=== PATIENT | female | born 1955 | race Caucasian/White ===

== ENCOUNTER 2024-11-05 09:09 | Outpatient (AMB) | payer MEDICARE, SELFPAY ==
--- NOTE | 2024-11-05 09:14 | MHC.OFFVIS ---
Vital Signs 11/05/24 09:18 Height 5 ft Weight 120 lb BMI 23.4 BP 116/78 Blood Pressure Location Rt brachial Position Sitting Intake Visit Reasons: ENP: Tremors Intake Note: Patient presents for tremors Allergies No Known Allergies Allergy (Verified 11/05/24 09:18) Medication List - Last Reconciled 11/05/24 by Sulma Holcomb MD alprazolam mg PO citalopram 20 mg PO DAILY omeprazole 40 mg PO DAILY primidone 50 mg PO DAILY vitamins A,C,B-dlss-eqyurs 4,296 mcg-226 mg-90 mg (PreserVision AREDS) 1 cap PO BID HPI Comments Details: 69y/o Right handed female comes for evaluation of tremors. She noticed tremors in her hands for about 10 years and has increased in severity now. 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 The tremors are with action and when she does activities that need fine motor coordination.No rest tremors she has family h/o tremors in her mother in her 70s. No voice tremors. Handwriting- moderately affected Using utensils- moderate difficulty drinking soup Drinking liquids out of a cup- holds with 2 hands Dressing- can dress without difficulty No leg tremors she does not restrict her social activities because of tremors PFSH Medical History Benign essential tremor Esophageal stenosis Osteoporosis Anxiety Surgical History H/O shoulder surgery H/O: hysterectomy Hx of colonoscopy Family History Mother COPD (chronic obstructive pulmonary disease) Father Malignant neoplasm Social History Alcohol intake: current Patient Tobacco Use Status: Never used Tobacco Review of Systems ENT Reports Normal hearing present Neuro Reports Normal hearing present Physical Exam Vital Signs: Last Vital Signs BP 116/78 11/05/24 09:18 BMI result Body Mass Index 23.4 Const General: cooperative, healthy appearing, comfortable and no acute distress Nutritional Appearance: average body habitus Orientation/consciousness: patient oriented x3 Eyes Pupils: Equal, round and reactive pupils present Neuro Other: Head tremors - mild no no Tongue mild tremors Mild voice tremors Hands - mild postural L>R tremors , mild to moderate action tremors see handwriting sample, archimedes spiral General: patient oriented x3, gait normal, tone normal, moves all extremities and no focal motor deficits Cranial nerves: Yes Facial sensation intact/muscles of mastication intact, Yes Equal, round and reactive pupils present, Yes Bilaterally intact EOM present, Yes Nystagmus not present, Yes Normal facial strength present, Yes Midline tongue present, Yes Symmetric palate elevation present, Yes Normal hearing present and Yes Ability to bilaterally elevate shoulders present Cognition (Neuro): normal cognition Gait exam (Neuro): Normal gait present Motor exam (neuro): 5/5 motor strength present throughout and Normal motor muscle tone present throughout Deep tendon reflexes (DTR's): Right triceps reflex intensity grade: 1+, Left triceps reflex intensity grade: 1+, Rt Biceps (C5, C6): 1+, Left biceps reflex intensity grade: 1+, Right brachioradialis reflex intensity grade: 1+, Left brachioradialis reflex intensity grade: 1+, Right patellar reflex intensity grade: 1+ and Left patellar reflex intensity grade: 1+ Coordination: [id number] test normal Assessment & Plan Assessment & Plan (1) Benign essential tremor: Code(s): G25.0 - Essential tremor Category: Medical Plan I will evaluate her with MRI Taper primidone to 25 mg qhs for 1 week and stop Trial patient on propranolol 10 mg tid as need discussed about the diagnosis and various management options including caltrio, FUS, andt DBS Orders: Orders MR head/brain wo con Today G25.0 - Essential tremor Medications: New propranolol 10 mg PO TID PRN 90 tabs 0RF tremors Coding Level of Care Code New Pt Level 4 (08573) Diagnoses Benign essential tremor G25.0
[2024-11-05 09:18] VITALS: BP 116/78; BMI 23.4
--- OUTSIDE RECORDS SUMMARY | 2024-11-05 09:36 | XMS_ITS | Continuity of Care Document ---
Author Organization [facility] ter Address [address] [place] [id number]- Support Name Relationship Address Phone CIRA [employer]WS Personal Relationship Unknown Alison vailable BORSARI, CIRA Personal Relationship Unknown Alison vailable BORSARI, CIRA Personal Relationship Unknown Alison vailable BORSARI, CIRA Personal Relationship Unknown Alison vailable BORSARI, CIRA Personal Relationship Unknown Alison vailable BORSARI, CIRA Personal Relationship Unknown Alison vailable BORSARI, CIRA Personal Relationship Unknown Alison vailable BORSARI, CIRA spouse Unknown Unavailable BORSARI, CIRA Personal Relationship Unknown Alison vailable BORSARI, CIRA Personal Relationship Unknown Alison vailable BORSARI, CIRA Personal Relationship Unknown Alison vailable BORSARI, CIRA Personal Relationship Unknown Alison vailable BORSARI, CIRA Personal Relationship Unknown Alison vailable BORSARI, CIRA Personal Relationship Unknown Alison vailable BORSARI, CIRA Personal Relationship Unknown Alison vailable BORSARI, CIRA Personal Relationship Unknown Alison vailable BORSARI, CIRA Personal Relationship Unknown Alison vailable BORSARI, CIRA Personal Relationship Unknown Alison vailable BORSARI, CIRA Personal Relationship Unknown Alison vailable BORSARI, CIRA Personal Relationship Unknown Alison vailable BORSARI, CIRA Personal Relationship Unknown Alison vailable BORSARI, CIRA Personal Relationship Unknown Alison vailable Care Team Providers Care Comic Book Writer Name Role Phone Aleshia Johnson MD Primary Care Physician Encounter 10/19/24 - 10/20/[address] [address]- Attending Physician: Not on Staff, Attending MD Referring Physician: Not on Staff, Referring MD Encounter Type: SMRI Allergies, Adverse Reactions, Alerts No Known Allergies Immunizations Given and Recorded Vaccine Date Status Refusal Reason Influenza Virus Vaccine (oldterm) 07/27/17 Recorde d Medications ALPRAZolam 0.5 mg oral tablet 0.5 mg, 1, tablet, By Mouth, Daily, PRN, # 30 tablet, Refills 0, Tot. Refills 0, Maintenance, for anxiety, 09/26/19 10:01:00 AM EST, Route to Pharmacy Electronically, [id number], 153, cm, 08/13/19 10:33:00 EST, Height Start Date: 09/26/19 Status: Ordered Quantity: 30.0 Unit: tablet Repeat number: 1 Calcitrate with D 1 tablet, By Mouth, Daily, 0 Refills, Maintenance, 03/08/16 3:13:25 PM EDT Start Date: 03/08/16 Status: Ordered Repeat number: 1 citalopram 20 mg oral tablet 20 mg, 1, tablet, By Mouth, Daily, # 90 tablet, Refills 0, Tot. Refills 0, Soft Stop, 10/17/19 10:20:00 AM EST, Route to Pharmacy Electronically, [id number], 153, cm, 08/13/19 10:33:00 EST, Height Start Date: 10/17/19 Status: Ordered Quantity: 90.0 Unit: tablet Repeat number: 1 Ocuvite 1 tablet, By Mouth, Daily, 0 Refills, Maintenance, 03/25/14 11:07:27 PM EDT Start Date: 03/25/14 Status: Ordered Repeat number: 1 Omeprazole = 20 mg, By Mouth, Daily, 0 Refills, Maintenance, 06/03/17 12:43:41 PM EDT Start Date: 06/03/17 Status: Ordered Repeat number: 1 Problem List Condition Confirmation Course Effective Dates Status H ealth Status Informant Actinic keratosis Confirmed Active Anxiety Confirmed Active Spinal compression fracture Confirmed Active Macular degeneration Confirmed Active Depression Confirmed Active Pancreatic calcification Confirmed Active GERD (gastroesophageal reflux disease) Confirmed Active Hypertension Confirmed Active Abnormal liver enzymes Confirmed Active Osteoarthritis Confirmed Active Osteopenia Confirmed Active Thrombocytopenia Confirmed Active Social History Social History Type Response Smoking Status Former smoker, quit more than 30 days ago entered on: 07/23/19 Sex Sex Representation Female (finding) Patient Care team information Care Team Personnel Name: Aleshia Johnson MD Position: [facility] Outreach Member Role: PCP [address]: [address] [place] [address] [place] [address]- [place] [employer]: Name: Vivien Cordova RN Position: [facility] AMB Nurse Member Role: Primary Care Nurse Care Team Related Persons Name: CIRA BRTIO Insurance Providers Guarantor name: BINH [facility] Information #: 1 Payer: CARLIE Member Number: NA Policy Number: NA Group Number: NA
--- OUTSIDE RECORDS SUMMARY | 2024-11-05 09:36 | XMS_ITS | Clinical Summary ---
Author Organization [facility] it Address [address] [place] [address] Care Team Providers Care Documentation Supervisor Name Role Phone Unavailable Primary Care Provider Unavailabl e Medications Medication Sig Dispensed Refills Start Date End Date Status omeprazole (PriLOSEC) [address] capsuleIndications:GE RD (gastroesophageal reflux disease) Take 1 capsule (40 mg total) by mouth 1 (one) time each day. Do not crush or chew. 30 each 2 08/23/2024 11/21/2024 Active Encounters Date Type Department Care Team Description 08/23/2024 Telephone Gastroenterology - [address] [facility] [address] [place] [address] Holli Rhodes MA from Last 3 Months Social History Tobacco Use Types Packs/Day Years Used Date Smoking Tobacco: Never Assessed Sex and Gender Information Value Date Recorded Sex Assigned at Not on file Gender Identity Not on file Sexual Orientation Not on file Plan of Treatment Health Maintenance Due Date Last Done Comments Breast Cancer Screening 1955 DTaP,Tdap,and Td Vaccines (1 - Tdap) 1973 Zoster Vaccines (1 of 2) 01/04/2004 Pneumococcal Vaccine: 65+ Ye ars (1 of 1 - PCV) 2019 Colorectal Cancer Screening: Colonoscopy 11/07/2023 Depression Screening 11/07/2023 Falls Risk Assessment 11/07/2023 Hepatitis C Screening 11/07/2023 Osteoporosis Screening (Bone Density Screening) 11/07/2023 Social Influencers of Health Screening 11/07/2023 COVID-19 Vaccine (1 - 2023-2 5 season) 2024 Influenza Vaccine (#1) 2024 RSV Immunization Patients 60 + Years Old (1 - 1-dose 75+ series) 2029 HIB Vaccines Aged Out No longer eligi ble based on patient's age to complete this topic HPV Vaccines Aged Out No longer eligi ble based on patient's age to complete this topic Hepatitis A Vaccines Aged Out No long er eligible based on patient's age to complete this topic Hepatitis B Vaccines Aged Out No long er eligible based on patient's age to complete this topic IPV Vaccines Aged Out No longer eligi ble based on patient's age to complete this topic MMR Vaccines Aged Out No longer eligi ble based on patient's age to complete this topic Meningococcal ACWY Vaccine Aged Out N o longer eligible based on patient's age to complete this topic RSV Immunization Patients Un katie 20 months Aged Out No longer eligible b ased on patient's age to complete this topic Varicella Vaccines Aged Out No longer eligible based on patient's age to complete this topic
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
== END 2024-11-05 10:12 | disposition home or self-care (01) ==
PROVIDERS: PCP Internal Medicine; Visit Provider Psychiatry & Neurology Neurology
DX: G25.0 Essential tremor (principal)
CPT/HCPCS: 99204

== ENCOUNTER → 2024-11-05 09:09 | Outpatient (BNVA) | payer MEDICARE, SELFPAY | PROVIDERS: PCP Internal Medicine; Visit Provider Psychiatry & Neurology Neurology | DX: G25.0 Essential tremor (principal) | CPT/HCPCS: 99202 ==

== ENCOUNTER → 2024-12-02 09:53 | Outpatient (BNV) | payer MEDICARE, SELFPAY | PROVIDERS: PCP Internal Medicine; Visit Provider Radiology Diagnostic Radiology | DX: G25.0 Essential tremor (principal) | CPT/HCPCS: 70551 ==

== ENCOUNTER 2024-12-02 10:07 | Outpatient (REF) | payer MEDICARE, SELFPAY ==
--- NOTE | ~2024-12-02 | MR_ITS ---
EXAMINATION: MR BRAIN WITHOUT IV CONTRAST HISTORY: G25.0 - Essential tremor TECHNIQUE: Sagittal T1, and axial T1, FLAIR, T2, gradient echo, and diffusion weighted MR images of the brain were obtained. COMPARISON: None FINDINGS: There is diffuse prominence of the ventricular system and cortical sulci, consistent with atrophy. Periventricular white matter hyperintensities are noted on the FLAIR and T2-weighted images which are nonspecific, but often seen in the setting of small vessel ischemic disease. There is no mass effect or midline shift. No intra or extra-axial fluid collections are identified. There are no foci of restricted diffusion. Normal vascular flow voids are noted in the basilar and carotid arteries. There is mucosal thickening in the bilateral maxillary sinuses. MR/MR head/brain wo con IMPRESSION: No acute intracranial abnormality. Electronically signed by: Elvin Limon MD 12/03/2024 07:13 AM PAN[facility]
--- OUTSIDE RECORDS SUMMARY | 2024-12-02 11:20 | XMS_ITS | Clinical Summary ---
Author Organization 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 Do not crush or chew. 90 each 5 02/20/20 25 Active omeprazole (PriLOSEC) [address] capsuleIndicat ions:GERD (gastroesophag eal reflux disease) Take 1 capsule (40 mg total) by mouth 1 (one) time each day. Do not crush or chew. 30 each 2 4 11/21/19 25 Discontinued Social History Tobacco Use Types Packs/Day Years Used Date Smoking Tobacco: Never Assessed Comments Unknown Sex and Gender Information Value Date Recorded Sex Assigned at Not on file Legal Sex Female 11:42 AM EST Gender Identity Not on file Sexual Orientation Not on file Plan of Treatment Health Maintenance Due Date Last Done Comments Breast Cancer Screening 1955 DTaP,Tdap,and Td Vaccines (1 - Tdap) 1973 Pneumococcal Vaccine: 50+ Ye ars (1 of 1 - PCV) 01/04/2004 Zoster Vaccines (1 of 2) 01/04/2004 Colorectal Cancer Screening: Colonoscopy 11/07/2023 Depression Screening 11/07/2023 Falls Risk Assessment 11/07/2023 Hepatitis C Screening 11/07/2023 Osteoporosis Screening (Bone Density Screening) 11/07/2023 Social Influencers of Health Screening 11/07/2023 COVID-19 Vaccine ( - 2023-2 5 season) 2024 Influenza Vaccine [...] patient's age to complete this topic Meningococcal B Vacine Aged Out No lo nger eligible based on patient's age to complete this topic RSV Immunization Patients Un katie 20 months Aged Out No longer eligible b ased on patient's age to complete this topic Varicella Vaccines Aged Out No longer eligible based on patient's age to complete this topic
--- OUTSIDE RECORDS SUMMARY | 2024-12-02 11:21 | XMS_ITS | Continuity of Care Document ---
Author Organization [place] - [facility], [address] Address [address] [place] [address] Care Team Providers Care Printer Operator Name Role Phone BRANDON MADRIGAL Primary Care Provider Assessment No assessment recorded. Plan of Treatment Reminders Order Date Submit Date Provider Last Modified By Organization Details Last Modified Time Details Appointments NEW PATIENT 10 2024 01:20P M Julio Cesar Pollock MD Not available Not available Not available Lab None recorded . Referral None recorded . Procedures None recorded . Surgeries None recorded . Imaging None recorded . Medication Orders None recorded . Patient TargetsNo targets recorded. Patient InstructionsNo instructions recorded. Reason for Referral None Reported. Results Created Date Observation Date Name Description Value Unit Range Abnormal Flag Note LastModifiedBy Organization Detail LastModifiedTime 10/22/1910/19/2024 MRI, shosharri katie, w/o contr ast [facility] Access ion Number : [id number] Patililian marcus Name: Zay terrazas Majoseluislake machelle Medica l Record Number : [id number] Date of : 1954 Date of Exam: 2024 Referr ing Physic michelle: Natalie Barker [address] [facility] [address] [facility], [place] [facility] [address] Exam: MR Should er (C-) CPT 79328 - Left Room Descri ption: [facility]T Clinic al Histor y: Pain in the left should er, questi on rotato r cuff tear. 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 Techni que: MRI of the left should er was perfor med withou t intrav enous contra st. Compar susan: None. Findin gs: Rotato r cuff: There is supras pinatu s tendin opathy . The infras pinatu s, teres minor and subsca pulari s tendon s are intact . There is normal muscle bulk. Glenoi d labrum and biceps tendon : Diminu tive, irregu lar appear ance of the superi or labrum , sugges ting degene rative tear. The biceps tendon is in the groove . AC joint: Mild acromi oclavi cular degene rative change with bony prolif eratio n and subcho ndral marrow edema is seen. Modera te fluid is seen in the subacr omial/ subdel toid bursa with hetero geneit y of the signal anteri kenney and latera lly in the bursa, sugges ting bursit is. Articu lar cartil age and bone: There is irregu lar chondr al loss which in the glenoi d with areas of chondr al loss extend ing full-t hickne ss in the centra l and pasteurizing supervisor ior inferi or aspect . There is subcho ndral cyst in the pasteurizing supervisor ior inferi or glenoi d. Inferi or irregu lar articu lar cartil age thinni ng is seen over the wally l head with slight bony prolif eratio n of the inferi or wally l head neck juncti on. There is a small glenoh umeral joint effusi on with hetero geneou s signal in the axilla ry pouch and subsca pulari s recess , sugges ting synovi tis. Impres antony: 1. Supras pinatu s tendin opathy with no eviden ce of rotato r cuff tear. 2. Modera te fluid in the subacr omial/ subdel toid bursa with hetero geneit y of the signal sugges ting bursit is. 3. Mild to modera te glenoh umeral degene rative change with degene rative appear ing tear of the superi or labrum and small joint effusi on with synovi tis. 4. Mild acromi oclavi cular degene rative change . Electr onical ly Signed By: Tonya dobbs [facility] ([facility] [address], [place], [address], 10/23/2024 08:40:11 Result Notes None recorded. Problems Name Problem SNOMED Code Status Onset Date Resolution Date Notes Provider Name and Address Organization Details Recorded Time Pain of left shoulder joint 960298257638 72763 Active 2023 Natalie Bhatt PA-C [address], [place], [address] , [facility] 4 08:46:35 Osteoarth ritis of joint of left shoulder region 966645475373 108 Active 2024 Natalie Tovar PA-C [address], [place], [address] , [facility] 5 08:46:19 Subacromi al bursitis of left shoulder 815348066899 9106 Active 2024 Natalie Tovar PA-C [address], [place], [address] , [facility] 5 11:26:20 Trochante elza bursitis of right hip 414204466830 100 Active 2017 Problem Code: M70.61; Problem Code Type: ICD-10; Status: 'A'; Not Available [facility] 4 12:13:25 Problem Notes None recorded. Procedures Surgical History Date Name Laterality Status Provider Name and Address Organization Details Recorded Time 4 91006 Therapeutic Exercise (1:1) cancelled Vish Gonzales PT [address], [place], [address], [facility] 09/13/2024 11:49:28 4 68943: Hot or Cold Pack cancelled Vish Gonzales PT [address], [place], [address], [facility] 09/13/2024 11:49:28 4 38337: Manual therapy cancelled Vish Champaign, PT [address], [place], [address], [facility] 09/13/2024 11:49:28 4 28051 Therapeutic Exercise (1:1) completed Linda Damiensak, PUMP OILER [address], [place], [address], [facility] 09/09/2024 09:24:11 4 79620: Hot or Cold Pack completed Linda Damiensak, PUMP OILER [address], [place], [address], [facility] 09/09/2024 09:24:11 4 73580: Manual therapy completed Linda Nimcok, PUMP OILER [address], [place], [address], [facility] 09/09/2024 09:24:11 4 84550 Therapeutic Exercise (1:1) completed Linda Damiensak, PUMP OILER [address], [place], [address], [facility] 08/29/2024 08:37:46 4 20769: Hot or Cold Pack completed Linda Nimcok, PUMP OILER [address], [place], [address], [facility] 08/29/2024 08:37:46 4 47431: Manual therapy completed Linda Damiensak, PUMP OILER [address], [place], [address], [facility] 08/29/2024 08:37:46 4 92950 Therapeutic Exercise (1:1) completed Linda Damiensak, PUMP OILER [address], [place], [address], [facility] 08/26/2024 11:19:51 4 13976: Hot or Cold Pack completed Linda Damiensak, PUMP OILER [address], [place], [address], [facility] 08/26/2024 11:19:46 4 59075: Manual therapy completed Linda Moody, PUMP OILER [address], [place], [address], [facility] 08/26/2024 11:24:54 4 71878 Therapeutic Exercise (1:1) completed Vish Gonzales, PT [address], [place], [address], [facility] 08/20/2024 12:16:29 4 57208: Low complexity PT Eval completed Vish Gonzales, PT [address], [place], [address], [facility] 08/20/2024 12:16:35 4 Sports Shoulder completed Natalie Bhatt PA-C [address], [place], [address], [facility] 08/16/2024 12:19:27 Imaging Results None recorded. Procedure Notes None recorded. Medical Equipment None Reported. Allergies No known drug allergies Medications Name Sig Start Date Stop Date Status Note LastModified by Organization Details LastModified Time primidone 50 mg tablet active Not Available Not Available Not Available tizanidine 2 mg tablet active Not Available Not Available Not Available meloxicam 15 mg tablet Take 1 tablet every day by oral route after meal(s). active Not Available Not Available No t Available omeprazole 40 mg capsule,del ayed release active Not Available Not Available Not Available oxycodone-a cetaminophe n 5 mg-325 mg tablet TAKE 1 TABLET BY MOUTH EVERY 6 HOURS NEEDED active Not Available Not Available No t Available alprazolam 0.5 mg tablet active Not Available Not Available Not Available propranolol 10 mg tablet active Not Available Not Available Not Available citalopram 20 mg tablet active Not Available Not Available Not Available Lidoderm 5 % topical patch 2024 active Not Available Not Available Not Avai lable pseudoephed rine-guaife nesin ER 80-700 mg tablet,exte nded release 1-2 TABS PO Q 4-6HRS PRN PAINDO NOT DRIVE WHILE TAKING THIS MEDICATIO N 08/16 completed Statu s: 'Curr ent'; Not Available Not Available Not Available citalopram 08/16 completed Not Available Not Available Not Available omeprazole 08/16 completed Not Available Not Available Not Available PreserVisio n AREDS PreserVis ion AREDS Capsule 2021 active Statu s: 'Curr ent'; Not Available Not Available Not Available oxycodone HCl-oxycodo ne-ASA 1 every 4 - 6 hours as needed for severe painDO NOT DRIVE WHILE TAKING THIS MEDICATIO N 08/25 completed Statu s: 'Disc ontin ued'; Not Available Not Available Not Available GaviLyte-G 236 gram-22.74 gram-6.74 gram-5.86 gram oral solution 08/16 completed Not Available Not Available Not Available Vitals Date Recorded Body height Body mass index (BMI) Body weight Provider Name and Address Organization Details Last Updated DateTime 11/15/2024 152.4 cm 23.4 kg/m2 12814.08 g MIGUEL WEBBER [place] - [facility] 11/15/2024 09:32:18 Social History Question Answer Notes LastModified by Ovidio morejon Details LastModified Time Tobacco Smoking Status Former Smoker DINESH jefferson [place] - [facility] 08/16/2024 10:40:07 What Is Your Level Of Alcohol Consumption? Occasional Information not available 08/16/2024 How Many Times Per Week Do You Consume Alcohol? 3-4 Times Per Week Information not available 08/16/2024 Which Illicit Or Recreational Drugs Have You Used? MARIJUANA Information not available 08/16/2024 When Did You Quit Smoking? 16+yearssincel astcigarette Information not available 08/16/2024 Which Of Your Hands Is Dominant? Right Information not available 08/16/2024 Have You Ever Been Counseled For Unhealthy Alcohol Use? No Information not available 08/16/2024 Do You Use Any Illicit Or Recreational Drugs? Yes gerberinmejia Information not available 08/16/2024 Do You Or Have You Ever Used Any Other Forms Of Tobacco Or Nicotine? No demetriusguinmejia Information not available 08/16/2024 Sex: Unknown Functional Status None recorded. Mental Status None recorded. Family History Nothing Reported. Medical History Condition Response Breathing or lung disorders Y Arthritis Y Gynecological HistoryNo gynecological history recorded. Obstetrics History GPAL:G 0 P 0 0 0 0 Past Encounters Encounter ID Performer Location Encounter Start Date Encounter Closed Date Diagnosis/Indication Diagnosis SNOMED-CT Code Diagnosis ICD10 Code Diagnosis Note [id number] [facility] [address] [place] [address] [place] [address] 11/15/2024 08:59:50 11/15/2024 11:27:11 Osteoarthritis of joint of left shoulder region 2803241417 72984 M19.012 Subacromia l bursitis of left shoulder 9157080397 068764 M75.52 Health Concerns Section Related Observation LastModified by Organization Detai ls LastModified Time None Recorded Concern Status LastModified by Organization Details LastModified Time None Recorded Payers Encounter Date Sequence Insurance Name Policy Number Policy Crawford Covered Member ID Crawford Member ID Guarantor Name 11/15/2024 1 [place] (MEDICARE REPLACEMENT PPO) [id number] Whitney Verde [id number] Whitney Verde Notes Date Note Type Note Provider Name and Address Organization Details Recorded Time 5 text/html I am seeing the patient today under the supervision of {{Jeff Buchanan Brothdarwin Beard barbara [place]#}} who was available but did not see the patient. CLINICAL UPDATE: 69-year-old agycf-qxkt-ocawcijt female patient presents today for left shoulder recheck. Last cortisone injection 08/16/24 provided good relief for about 2 months, pain has returned. She attended physical therapy with good improvements in her ROM. She reports an episode where she picked up her granddaughter and had severe pain in the shoulder and crepitus. Her primary care provider provided her with Percocet which she reports relieved her pain. She called our office and MRI was ordered, here today to review the results. HPI: Presented 08/16/24 with left shoulder pain that began about 2 months ago, no specific injury. She does report neck pain that is new for her, denies numbness and tingling down the left upper extremity. She saw her primary care provider who ordered x-rays and provided her with a muscle relaxer that provided minimal relief. She had an MRI in 2020 of the left shoulder that demonstrated a partial-thickness bursal sided rotator cuff tear, moderate AC and glenohumeral joint osteoarthritis, moderate tendinosis. Denies previous shoulder surgery. Past family, medical, social history and review of systems has been reviewed, updated and is located in the patient's chart.X-RAYS: Previous 2v x-rays of the {{Right Left* Bilateral}} shoulder reviewed along with 2v in [facility] today demonstrates type II acromion, mild to moderate AC joint degenerative changes, humeral head appears centered within the joint space. MRI Lemon 06-22-2025 of the left shoulderindependently reviewed today demonstrates: Supraspinatus tendinopathy, no rotator cuff tear. Degenerative tearing of the labrum. Biceps appears intact. Mild AC joint degenerative changes with bony edema. Moderate subacromial subdeltoid bursitis. Mild to moderate glenohumeral joint degenerative changes with small joint effusion. IMPRESSION: {{Right Left* Bilateral}} shoulder rotator cuff tendinopathy, mild to moderate AC and glenohumeral joint osteoarthritis, bursitis PLAN: Findings reviewed. Discussed ongoing conservative treatment options to include physical therapy, cortisone injections, topical and oral anti-inflammatories. Patient reports she has tried several of these options and is continuing to have pain and crepitus. She would like to discuss the possibility of SADDCE with Dr. Pollock though we discussed this may not completely relieve her pain as she does have osteoarthritis, appointment made today. We discussed the typical procedure and recovery time. Her primary care provider provided her with a small prescription of Percocet, discussed I would not recommend this at this time. Meloxicam 15 mg to be taken daily with food was sent to her pharmacy. Instructed to avoid other NSAIDs while taking this medication and discontinue if GI upset. Also sent lidocaine patches for pain relief. Recommended ongoing gentle range of motion shoulder exercises. All of her concerns are addressed and she understands and agrees with the plan. Speech recognition associate brand manager software was used to create portions of this document. An attempt at proofreading has been made to minimize errors. Please call for corrections. Natalie Tovar PA-C [address] [facility] [address], [place], [address], [facility] 11/15/2024 11:27:09 OBGyn Episode No OBEpisode recorded.
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
== END 2024-12-02 10:08 | disposition home or self-care (01) ==
LOC: HO.MRI 10:07
PROVIDERS: PCP Internal Medicine; Visit Provider Psychiatry & Neurology Neurology
DX: G25.0 Essential tremor (principal)
CPT/HCPCS: 70551

== ENCOUNTER 2024-12-13 10:54 | Outpatient (AMB) | payer MEDICARE, SELFPAY ==
[2024-12-13 10:56] VITALS: BP 180/100; PULSE 64; O2SAT 96; BMI 23.6
--- NOTE | 2024-12-13 10:56 | MHC.OFFVIS ---
Vital Signs 12/13/24 10:56 Height 5 ft Weight 121 lb BMI 23.6 BP 180/100 H Blood Pressure Location Rt brachial Position Sitting Pulse 64 Pulse Source Pulse Oximeter Pulse Oximetry (%) 96 Oxygen Delivery Method Room Air Intake Visit Reasons: 1 mnth f/u appt Intake Note: Patient presents for 1 month follow up. Brain MRI on file and done on 12/02/24. Conservation Or Heritage [employer] Required: No Accompanied by: Self / Same As Patient Allergies No Known Allergies Allergy (Verified 12/13/24 10:57) HPI Comments Details: 69y/o Right handed female comes for evaluation of tremors. She has a family h/o tremors with mother. She noticed tremors in her hands for about 10 years and has increased in severity now. 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 The tremors are with action and when she does activities that need fine motor coordination. She goes to sleep at 9pm and wakes up at 7am, with one bathroom breaks. Her diet well balanced and she exercises 4x a week, walking 30min to 40min. Mood is generally happy. No rest tremors. No voice tremors. Handwriting- moderately affected Using utensils- moderate difficulty drinking soup Drinking liquids out of a cup- holds with 2 hands Dressing independent in all ADLs No LE Tremors Social activities are not impacted or limited Denies memory issues Denies falls Denies constipation BP was normal at [employer] 2 weeks ago, she has white coat [facility] Medical History Benign essential tremor Esophageal stenosis Osteoporosis Anxiety Surgical History H/O shoulder surgery H/O: hysterectomy Hx of colonoscopy Family History Mother COPD (chronic obstructive pulmonary disease) Father Malignant neoplasm Social History Alcohol intake: current Patient Tobacco Use Status: Never used Tobacco Review of Systems ENT Reports Normal hearing present Neuro Reports Normal hearing present Physical Exam Vital Signs: Last Vital Signs Pulse 64 12/13/24 10:56 BP 180/100 H 12/13/24 10:56 Pulse Ox 96 12/13/24 10:56 Oxygen Delivery Method Room Air 12/13/24 10:56 BMI result Body Mass Index 23.6 Const General: cooperative, comfortable and no acute distress Nutritional Appearance: average body habitus Orientation/consciousness: patient oriented x3 Eyes Pupils: Equal, round and reactive pupils present Neck Neck: Yes full ROM and Yes supple Neuro Other: Head tremors - mild Tongue mild tremors Mild voice tremors Hands - mild postural L>R tremors and mild to moderate action tremors Handwriting sample, archimedes spiral General: patient oriented x3, gait normal, tone normal, moves all extremities and no focal motor deficits Cranial nerves: Yes Facial sensation intact/muscles of mastication intact, Yes Equal, round and reactive pupils present, Yes Bilaterally intact EOM present, Yes Nystagmus not present, Yes Normal facial strength present, Yes Midline tongue present, Yes Symmetric palate elevation present, Yes Normal hearing present and Yes Ability to bilaterally elevate shoulders present Cognition (Neuro): normal cognition Gait exam (Neuro): Normal gait present Motor exam (neuro): 5/5 motor strength present throughout and Normal motor muscle tone present throughout Deep tendon reflexes (DTR's): Right triceps reflex intensity grade: 1+, Left triceps reflex intensity grade: 1+, Rt Biceps (C5, C6): 1+, Left biceps reflex intensity grade: 1+, Right brachioradialis reflex intensity grade: 1+, Left brachioradialis reflex intensity grade: 1+, Right patellar reflex intensity grade: 1+ and Left patellar reflex intensity grade: 1+ Coordination: [id number] test normal Results Reviewed Results Reviewed: Nov 2024 MRI FINDINGS: There is diffuse prominence of the ventricular system and cortical sulci, consistent with atrophy. Periventricular white matter hyperintensities are noted on the FLAIR and T2-weighted images which are nonspecific, but often seen in the setting of small vessel ischemic disease. There is no mass effect or midline shift. No intra or extra-axial fluid collections are identified. There are no foci of restricted diffusion. Normal vascular flow voids are noted in the basilar and carotid arteries. There is mucosal thickening in the bilateral maxillary sinuses. 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 Continue on propranolol 10 mg tid Discussed White Coat HTN and managing and monitoring BP at home. 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 200 mg (2 x 100 mg) PO BID 360 tabs 3RF 90 days MDD 200mg G25.0 - Essential tremor Refilled propranolol 10 mg PO TID PRN 90 tabs 0RF tremors Patient Instructions: Discussed MRI today Periventricular White matter disease and normal process of aging. Monitor BP and manage accordingly. Eating a well balanced diet, getting plenty of rest and eliminating stress will help to decrease tremors. F/U in 6 months or sooner as needed. 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
--- OUTSIDE RECORDS SUMMARY | 2024-12-13 12:30 | XMS_ITS | Data Portability ---
Author Organization [place] - [facility],, MEME CLINE MD Address [address] [facility] [address] [place] [address] Care Team Providers Care Wordpress Developer Name Role Phone BRANDON MADRIGAL Primary Care Provider Assessment No assessment recorded. Plan of Treatment Reminders Order Date Submit Date Provider Last Modified By Organization Details Last Modified Time Details Appointments None recorded . Lab cytology report, thin prep, smear or scraping , cervical or vaginal 2024 025 SARA [facility] (Centralized Electronic Ordering - All Locations), Patient Can Go To The Location Of Their Choice, [facility] 5 16:15:54 Referral pelvic floor therapy referral - dyspareu rico despite 2 years of vaginal estradio l therapy. Recent MRI only showed a 1 cm cyst in the right vaginal wall, no etiology found for the pain 2022 023 [email or web address] [facility], [address] [facility], [facility] [address], [place], [address], 4 07:40:59 Procedures therapeu tic, prophyla ctic, or diagnost ic injectio n; subcutan eous/int ramuscul ar (PROC) 2022 023 Not available 3 07:31:24 therapeu tic, prophyla ctic, or diagnost ic injectio n; subcutan eous/int ramuscul ar (PROC) 2022 023 Not available 3 13:54:13 Surgeries None recorded . Imaging MAMMO, screenin g, digital, bilatera l - Breast Aspirati on and/or Biopsy if needed 2024 025 [facility], [address], [address], [place], [address], 5 16:06:50 bone density 2024 025 [facility], [address], [address], [place], [address], 5 16:06:50 MRI, pelvis, w/wo contrast - pain of specific point on the left pelvic ramus, just inside the vaginal canal at the 4 o'clock, for 2 months, making intercou rse impossib le due to severe pain. No pain on palpatio n of any other bony structur e in the pelvic, juut this one specific point [email or web address] [address], [place], [address], 3 07:19:09 Medication Orders Prolia 60 mg/mL subcutan eous syringe 2022 023 [email or web address] 1 [id number], [address] [place] [address], [id number], 3 10:51:00 Prolia 60 mg/mL subcutan eous syringe 2022 023 [email or web address] 1 [id number], [address] [place], [place], [id number], 3 13:45:27 Patient TargetsNo targets recorded. Patient Instructions Encounter Date Encounter Id Patient Instructions Last Modified By Organization Details Last Modified Time 12/08/2022 [id number] She has a two month complaint of [...] seeding, somewhere. Not available 12/08/2022 13:31:34 03/13/2023 [id number] She is here for follow up after [...] discussion 30 minutes Not available 03/13/2023 13:05:20 12/03/2024 [id number] atrophic vaginitis: care instructions Not available 12/03/2024 14:55:35 learning about healthy weight Not available 12/03/2024 14:55:35 She is here for annual, she started Prolia in 11/2022. Has not had a bone density since then. She is using an over the counter oral pill she gets from [employer] that helps with vaginal dryness, she is not certain if it is a phytoestrogen or not. She has had a hysterectomy. Note from 2021: She is here for annual exam, has osteopenia, is on Evista, next bone density in 07/30. she needs a refill on her estradiol vaginal cream, it does help the vaginal dryness and urinary urge incontinence. ____ She appears to be doing well. Monthly self breast exam was taught, and stressed, and is advised to call if she discovers any new mass in the breast. She is advised that if she is taking a phytoestrogen she should switch to vaginal estradiol cream, which she used to use She prefers the oral pills. She is advised it is not FDA regulated and could increase risks of blood clots, she is aware. Not available 12/03/2024 15:06:53 Reason for Referral Pelvic Floor Therapy Referra l for Deep pain on intercourse dyspareunia despite 2 years of vaginal estradiol therapy. Recent MRI only showed a 1 cm cyst in the right vaginal wall, no etiology found for the pain Referring Physician: Meme Cline, Gynecology, Encounter Date: 03/13/2023 Results Created Date Observation Date Name Description Value Unit Range Abnormal Flag Note LastModifiedBy Organization Detail LastModifiedTime 12/03/19 25 12/05/2024 IGP, RFX APTIM A HPV ASCU diagnosis: Leny BERNARD FOR INTRA EPITH ELIAL VALDEMAR Polanco OR WILL CUTLER . Not Available [facility] ([facility]) [address] [place], [address], 12/05/2024 16:15:54 12/03/1912/05/2024 IGP, RFX APTIM A HPV ASCU specimen adequacy: Leny marcus Satis facto mikayla for evalu ation . Not Available [facility] ([facility]) [address] [place], [address], 12/05/2024 16:15:54 12/03/19 25 12/05/2024 IGP, RFX APTIM A HPV ASCU clinician provided ICD10: Leny marcus Z12.4 Not Available [facility] ([facility]) [address] [place], [address], 12/05/2024 16:15:54 12/03/19 25 12/05/2024 IGP, RFX APTIM A HPV ASCU performed by: Michaelle Brock (ASCP ) Not Available [facility] ([facility]) [address] [place], [address], 12/05/2024 16:15:54 12/03/19 25 12/05/2024 IGP, RFX APTIM A HPV ASCU . . Not Available [facility] ([facility]) [address] [place], [address], 12/05/2024 16:15:54 12/03/1912/05/2024 IGP, RFX APTIM A HPV ASCU note: Leny marcus The Pap smear is a scree miles test desig cora to aid in the detec tion of jami ligna nt and malig nant condi tions of the uteri ne cervi x. It is not a diagn ostic proce dure and shoul d not be used as the sole means of detec ting cervi sherice cance r. Both false -posi tive and false -nega tive repor ts do occur . Not Available [facility] ([facility]) [address] [place], [address], 12/05/2024 16:15:54 12/03/1912/05/2024 IGP, RFX APTIM A HPV ASCU test methodology: Leny marcus This liqui d based ThinP rep(R ) pap test was scree cora with the use of an image guide alfreda systlake m. Not Available [facility] ([facility]) [address] [place], [address], 12/05/2024 16:15:54 12/03/19 25 12/05/2024 IGP, RFX APTIM A HPV ASCU . Leny marcus The HPV DNA refle x crite mat were not met with this speci men resul t there fore, no HPV testi ng was perfo rmed. Not Available [facility] ([facility]) [address] [facility], [place], [address], 12/05/2024 16:15:54 11/01/19 23 11/01/2022 MAMMO , scree miles, digit al, bilat eral No observ ation record ed. [facility] [address] [facility] [place], [address], 11/01/2022 14:05:21 11/04/19 23 11/01/2022 bone densi ty No observ ation record ed. [email or web address] [facility] [place] [address] [facility] [place], [address], 11/07/2022 08:47:49 03/07/20 23 03/03/2023 MRI, pelvi s, w/o contr ast No observ ation record ed. [facility] ([facility]) [address] [facility] [place], [address], 03/08/2023 09:14:29 03/13/2007/07/2014 CT, abdom en + pelvi s, w/wo contr ast No observ ation record ed. Not Available 2022 11:05:13 11/02/19 24 11/02/2023 MAMMO , scree miels, digit al, bilat eral No observ ation record ed. [facility] [address] [facility] [place], [address], 11/02/2023 13:14:50 Result Notes None recorded. 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 Meme Cline MD [address] [facility], [address], [place], [address], [place] [facility], 8 10:00:55 History of abdominal abscess 792153811507 10261 Active 2017 abdominal wall abscess in [address], [place], [address], [place] [facility], 8 10:04:18 Atrophic vaginitis 76345424 Active [address], [place], [address], [place] [facility], 8 10:05:17 Herpesvir us infection 04508801 Active [address], [place], [address], [place] [facility], 8 15:28:43 Osteopeni a 767409256 Active 2017 MD [address], [place], [address], [place] [facility], 8 11:01:18 Lesion of vulva 201052216 Active 2019 [address], [place], [address], [place] [facility], 0 10:23:41 Dyspareun ia 31704243 Active [address], [place], [address], [place] [facility], 1 11:41:20 Osteoporo sis 82550257 Active [address], [place], [address], [place] [facility], 3 11:32:39 Problem Notes None recorded. Procedures Surgical History Date Name Laterality Status Provider Name and Address Organization Details Recorded Time 11/02/19 25 Most Recent Mammogram completed Aparna Mckoy [place] - [facility], 12/03/2024 14:47:36 11/01/19 23 Most Recent Bone Density completed Aparna Franz in [facility], 11/08/2022 13:15:33 03/21/20 19 division of clavicle completed Aparna Franz in [facility], 11/28/2019 09:30:15 10/09/19 07 Hysterectomy completed Meme Cline MD [address] [place] [address],[address], [place], [address], [place] - [facility], 12/05/2017 09:31:10 10/10/18 84 Dilation and Curettage completed Aparna Mckoy [place] - [facility], 12/05/2017 09:18:54 Imaging Results Imaging Date Name Status LastModified by Organiz ation Details LastModified Time 11/01/2022 MAMMO, screening, digital, bilateral completed [address] [facility] [place] [address] [place], [address], 11/01/2022 14:05:21 11/01/2022 [facility] [address] [place], [address], 11/07/2022 08:47:49 03/03/2023 MRI, pelvis, w/o contrast completed [facility] ([facility]) [address] [facility] [place], [address], 03/08/2023 09:14:29 07/07/2014 CT, abdomen + pelvis, w/wo contrast completed Information not available 03/13/2023 11:05:13 11/02/2023 MAMMO, screening, digital, bilateral completed [address] [facility] [place] [address] [place], [address], 11/02/2023 13:14:50 Procedure Notes None recorded. Medical Equipment None Reported. Allergies No known drug allergies Medications Name Sig Start Date Stop Date Status Note LastModified by Organization Details LastModified Time amoxicillin 500 mg capsule 03/01 completed Not Available Not Available Not Available primidone 50 mg tablet 12/03 completed Not Available Not Available Not Available tizanidine 2 mg tablet 12/03 completed Not Available Not Available Not Available meloxicam 15 mg tablet take 1 tablet by mouth once daily WITH SUPPER active Not Available Not Available No t Available alendronate 70 mg tablet TAKE 1 TABLET BY MOUTH EVERY WEEK 12/03 completed Not Available Not Available Not Available acyclovir 400 mg tablet take 1 [...] 0.5 g every day by vaginal route. 12/03 completed Not Available Not Available Not Available methylpredn isolone 4 mg tablets in [...] Available Not Available Not Available Vitamin D3 12/03 completed Not Available Not Available Not Available Calcium 500 + D 12/03 completed Not Available Not Available Not Available Prolia [...] t Available Vitals Date Recorded Body height Body mass index (BMI) Body weight Heart rate Systolic blood pressure Diastolic blood pressure Provider Name and Address Organization Details Last Updated DateTime 3 151.13 cm 24.2 kg/m2 35384.2 7 g 76 /min 144 mm[Hg] 72 mm[Hg] Suzanne Zaidi [place] - [facility], 3 13:07:11 Date Recorded Body height Body mass index (BMI) Body weight Heart rate Systolic blood pressure Diastolic blood pressure Provider Name and Address Organization Details Last Updated DateTime 3 151.13 cm 24.2 kg/m2 55297.2 7 g 89 /min 167 mm[Hg] 82 mm[Hg] Aparna Mckoy [place] - [facility], 3 10:37:40 Date Recorded Body height Body mass index (BMI) Body weight Heart rate Systolic blood pressure Diastolic blood pressure Provider Name and Address Organization Details Last Updated DateTime 3 151.13 cm 24.2 kg/m2 97772.2 7 g 94 /min 154 mm[Hg] 72 mm[Hg] Suzanne Franz in [facility], 3 10:43:34 Date Recorded Body height Body mass index (BMI) Body weight Heart rate Body temperature Systolic blood pressure Diastolic blood pressure Provider Name and Address Organization Details Last Updated DateTime 3 151.13 cm 24.2 kg/m2 22038.5 5 g 83 /min 97.3 [degF] 161 mm[Hg] 89 mm[Hg] Aparna Franz in [facility], 3 10:41:30 Date Recorded Body height Body mass index (BMI) Body weight Heart rate Systolic blood pressure Diastolic blood pressure Provider Name and Address Organization Details Last Updated DateTime 5 149.86 cm 24 kg/m2 27405.4 9 g 73 /min 148 mm[Hg] 64 mm[Hg] Aparna Franz in [facility], 5 14:43:21 Social History Question Answer Notes LastModified by Organization Details LastModified Time Tobacco Smoking Status Former Smoker Not Available [facility] 08/11/2020 03:19:37 What Is Your [...] Type Of Diet Are You Following? REGULAR [id number] Information not available 08/11/2020 Which Illicit Or Recreational Drugs Have You Used? No [id number] Information not available 08/11/2020 Do You Reside In Or Have You Traveled To An Area Where Ebola Virus Transmission Is Active? No [id number] Information not available 08/11/2020 Do You Or Have You Ever Used E-cigarettes Or Vape? Never Used Electronic Cigarettes [id number] Information not available 08/11/2020 Education 2 Year College Information not available 12/05/2017 What Is Your Occupation? Retired [id number] Information not available 08/11/2020 How Many Days In The Past Year Have You Had A Heavy Drinking Consumption (4+ Female, 5+ Male)? 10 Information not available 12/03/2024 Are There Any Guns Present In Your Home? Yes Information not available 12/06/2021 High Number Of Sexual Partners Yes Information not available 12/05/2017 To Which Gender Do You Self-identify? Female Information not available 12/05/2017 Marital Status Informatio n not available 12/05/2017 What Was The Date Of Your Most Recent Tobacco Screening? 12/03/2024 Information not available 12/03/2024 What Is Your Relationship Status? Information not available 12/06/2021 Are You Sexually Active? Yes Having Issues With [place] Information not available 03/01/2021 At What Age Did You Start Smoking Tobacco? 16 Information not available 12/06/2021 Do You Or Have You Ever Used Smokeless Tobacco? Never Used Smokeless Tobacco [id number] Information not available 08/11/2020 How Much Tobacco Do You Smoke? No [id number] Information not available 08/11/2020 General Stress Level Medium Information not available 12/03/2024 Do You Feel Stressed (tense, Restless, Nervous, Or Anxious, Or Unable To Sleep At Night)? [id number] Information not available 12/03/2024 Do You Use Any Illicit Or Recreational Drugs? No Information not available 12/06/2021 How Many Years Have You Smoked Tobacco? 20 [id number] Information not available 08/11/2020 Have You Recently [...] Time What is your exercise level? Moderate [id number] Information not available 08/11/2020 Mental Status None [...] for MyRisk panel N Autoimmune Condition N Thyroid Problems N Kidney or Bladder Problems N GI Problems N Lung Disease N Depression N Defects or Inherited Disease N History of Ovarian Cancer N Anemia N History of Breast Cancer N JACQUIE exposure N BRCA testing in past N Osteopenia Y Psychiatric Illness N Anxiety Disorder Y Diabetes N Arthritis Y Headaches or Migraines N Infertility N Asthma N History of Cancer N Endometriosis N Hepatitis N Heart Disease N Hypertension N Osteoporosis N Gynecological History Statement/Question Response If Post Menopausal, Age at Menopause 51 Age at Menarche 10 Most Recent Mammogram 11/02/2024 Age at First Child 31 Most Recent Bone Density 11/01/2022 Hormone Replacement Therapy N Obstetrics History GPAL:G 3 P 1 0 2 1 Type Value Full Term 1 Spontaneous 2 Living 1 Total 3 Immunizations Vaccine Type Date Status Note Provider Nam e and Address Organization Details Recorded Time Influenza, split virus, quadrivalent, preservative 7 completed Aparna Meczywor null, [place] - [facility], 12/05/2017 09:12:48 Influenza, split virus, quadrivalent, preservative 8 completed Tequila Medina null, [place] - [facility], 11/23/2018 10:05:53 DTaP 9 completed Aparna Meczywor null, [place] - [facility], 11/28/2019 09:28:21 SARS-COV-2 (COVID-19) vaccine, UNSPECIFIED 1 completed Suzanne Zaidi null, [place] - [facility], 03/01/2021 13:49:14 Influenza, adjuvanted, trivalent, PF 9 completed Aparna Meczywor null, [place] - [facility], 12/08/2022 10:38:02 zoster recombinant 1 completed Aparna Meczywor null, [place] - [facility], 12/08/2022 10:38:02 Influenza, high-dose, quadrivalent, PF 0 completed Aparna Meczywor null, [place] - [facility], 12/08/2022 10:38:02 Influenza, adjuvanted, quadrivalent, PF 1 completed Aparna Meczywor null, [place] - [facility], 12/08/2022 10:38:02 Influenza, adjuvanted, quadrivalent, PF 2 completed Aparna Meczywor null, [place] [facility], 12/08/2022 10:38:02 COVID-19, mRNA, LNP-S, PF, 30 mcg/0.3 mL dose 2 completed Aparna Meczywor null, [place] - [facility], 12/08/2022 10:38:02 COVID-19, mRNA, LNP-S, PF, 30 mcg/0.3 mL dose 1 completed Aparna Meczywor null, [place] [facility], 12/08/2022 10:38:02 COVID-19, mRNA, LNP-S, PF, 30 mcg/0.3 mL dose 1 completed Aparna Meczywor null, [place] - [facility], 12/08/2022 10:38:02 COVID-19, mRNA, LNP-S, PF, 30 mcg/0.3 mL dose, jeovany-sucrose 2 completed Aparna Meczywor null, [place] - [facility], 12/08/2022 10:38:02 Tdap 9 completed Aparna Meczywor null, [place] - [facility], 12/08/2022 10:38:02 Influenza, split virus, trivalent, preservative 3 completed Aparna Meczywor null, [place] - [facility], 12/08/2022 10:38:02 Past Encounters Encounter ID Performer Location Encounter Start Date Encounter Closed Date Diagnosis/Indication Diagnosis SNOMED-CT Code Diagnosis ICD10 Code Diagnosis Note [id number] MD MEME Srivastava MD [address] [place] [id number] 12/05/2017 08:58:28 12/05/2017 10:23:00 Specialized medical examination 70222724 Z01.419 Screening for malignant neoplasm of rectum 148178704 Z12.12 Screening mammography 24 964998 Z12.31 Menopausal syndrome 1237 15207 N95.9 Atrophic vaginitis 78699 000 N95.2 [id number] MD MEME Srivastava MD [address] [facility] [place] [id number] 02/06/2018 10:38:51 02/06/2018 15:03:35 Osteopenia 946228047 M85.852 Vitamin D deficiency 347 76855 E55.9 [id number] MD MEME Srivastava MD [address] [facility] [place] [id number] 11/23/2018 09:55:09 11/23/2018 12:53:31 Specialized medical examination 16933704 Z01.419 Screening for malignant neoplasm of rectum 392361357 Z12.12 Screening mammography 24 482353 Z12.31 Osteopenia 188813504 M85 .852 [id number] MD MEME Srivastava MD [address] [place] [address] [place] [id number] 11/28/2019 09:19:18 11/28/2019 10:49:29 Screening for malignant neoplasm of cervix 189083034 Z12.4 Screening mammography 24 871048 Z12.31 Screening for osteoporosis 669370803 Z13.820 Atrophic vaginitis 44441 000 N95.2 Lesion of vulva 49294195 6 N90.89 Osteopenia 742388040 M85 .852 [id number] MD MEME Srivastava MD [address] [place] [id number] 02/23/2021 11:27:14 02/23/2021 14:36:32 Osteopenia 180437922 M85.852 Dyspareunia 03300523 N94 .10 [id number] MD MEME Srivastava MD [address] [place] [address] [place] [id number] 03/01/2021 13:41:38 03/01/2021 15:37:24 Atrophic vaginitis 09827659 N95.2 [id number] MD MEME Srivastava MD [address] [place] [address] [place] [address] 12/06/2021 14:22:03 12/06/2021 15:21:08 Screening for malignant neoplasm of cervix 726357696 Z12.4 Screening mammography 24 027045 Z12.31 Screening for osteoporosis 745429946 N95.8 Osteopenia 509669572 M85 .852 Atrophic vaginitis 29602 000 N95.2 [id number] MD MEME Srivastava MD [address] [place] [address] [place] [id number] 11/08/2022 13:10:05 11/08/2022 14:15:47 Stress fracture of foot 678012821 M84.374A Fracture of rib 33425921 S22.32XA Osteoporosis 29368424 M8 1.0 [id number] MD MEME Srivastava MD [address] [place] [address], [place] [id number] 11/28/2022 13:02:16 11/28/2022 13:56:40 Osteoporosis 48493275 M81.0 [id number] MD MEME Srivastava MD [address] [place] [address],[facility] [place] [id number] 12/08/2022 10:34:38 12/08/2022 14:53:56 Bone pain 37599995 M89.8X8 Dyspareunia 94774909 N94 .10 [id number] MD MEME Srivastava MD [address] [place] [address],[facility] [place] [id number] 03/13/2023 10:39:39 03/13/2023 13:18:36 Deep pain on intercourse 828122830 N94.12 [id number] MD MEME Srivastava MD [address] [place] [address],[facility] [place] [id number] 05/30/2023 10:37:25 05/30/2023 10:58:15 Osteoporosis 95920413 M81.0 [id number] MD MEME Srivastava MD [address] [place] [address],[facility] [place] [id number] 12/03/2024 14:38:27 12/03/2024 16:06:50 Screening for malignant neoplasm of cervix 311620311 Z12.4 Screening mammography 24 784510 Z12.31 Screening for osteoporosis 448881142 N95.8 Osteoporosis 28361286 M8 1.0 Health Concerns Section Related Observation LastModified by Organization Detai ls LastModified Time None Recorded Concern Status LastModified by Organization Details LastModified Time None Recorded Advance Directives Directive None Recorded Payers Encounter Date Sequence Insurance Name Policy Number Policy Crawford Covered Member ID Crawford Member ID Guarantor Name 11/28/2022 1 [place] PPO) [id number] Whitney Verde [id number] Whitney [place]de 12/08/2022 1 [place]PO) [id number] Whitney Verde [id number] Whitney [place]de 03/13/2023 1 [place] PPO) [id number] Whitney Burnsri [id number] [place] 05/30/2023 1 [place] PPO) [id number] Whitney Burnsri [id number] [place] 12/03/2024 1 [place] PPO) [id number] Whitney Verde [id number] Whitney Verde Notes Date Note Type Note Provider Name and Address Organization Details Recorded Time 12/08/2022 text/html She has a two mo nth complaint of pain in the left vaginal wall with intercourse, getting worse. It has become unbearable and intercourse is not possible now. It never hurt here previously. No injury or infection. IT is always the same spot. Meme Cline MD [address] [facility],[address], [place], [address], [place] - [facility], 12/08/2022 13:31:48 03/13/2023 text/html She is here [...] does not appear to be so. Meme Cline MD [address], [place], [address], [place] - [facility], 03/13/2023 13:05:34 12/03/2024 text/html She is here for annual, she started Prolia in 11/2022. Has not had a bone density since then. She is using an over the counter oral pill she gets from [employer] that helps with vaginal dryness, she is not certain if it is a phytoestrogen or not. She has had a hysterectomy. Note from 2021: She is here for annual exam, has osteopenia, is on Evista, next bone density in 07/30. she needs a refill on her estradiol vaginal cream, it does help the vaginal dryness and urinary urge incontinence. Meme Cline MD [address] [facility],[address], [place], [address], [place] [facility], 12/03/2024 15:07:17 OBGyn Episode No OBEpisode recorded.
--- OUTSIDE RECORDS SUMMARY | 2024-12-13 12:30 | XMS_ITS | Continuity of Care Document ---
Author Organization [place] - [facility],, MEME LUIS MD Address [address] [facility] [address] [place] [address] Care Team Providers Care Police Lieutenant Patrol Name Role Phone BRANDON MADRIGAL Primary Care Provider [phone] Assessment No assessment recorded. Plan of Treatment Reminders Order Date Submit Date Provider Last Modified By Organization Details Last Modified Time Details Appointments None recorded. Lab cytology report, thin prep, smear or scraping, cervical or vaginal 2024 025 [employer] [facility] (Centralized Electronic Ordering - All Locations), Patient Can Go To The Location Of Their Choice, [id number] 16:15:54 Referral None recorded. Procedures None recorded. Surgeries None recorded. Imaging MAMMO, screening, digital, bilateral - Breast Aspiration and/or Biopsy if needed 2024 025 [facility], [address], [address], [place], [address], 16:06:50 bone density 2024 025 [facility], [address], [address], [place], [address], 16:06:50 Medication Orders None recorded. Patient TargetsNo targets recorded. Patient Instructions Encounter Date Encounter Id Patient Instructions Last Modified By Organization Details Last Modified Time 12/03/2024 [id number] atrophic vaginitis: care instructions Not available 12/03/2024 14:55:35 learning about healthy weight Not available 12/03/2024 14:55:35 She is here for annual, she started Prolia in 11/2022. Has not had a bone density since then. She is using an over the counter oral pill she gets from [employer] that helps with vaginal dryness, she is [...] Not available 12/03/2024 15:06:53 Reason for Referral None Reported. 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 Meme Luis MD [address], [place], [address], [place] - [facility], 8 10:00:55 History of abdominal abscess 609490986734 40720 Active 2017 abdominal wall abscess in 2013 Meme Luis MD [address], [place], [address], [place] [facility], 8 10:04:18 Atrophic vaginitis 68065820 Active 2017 Meme Luis MD [address], [place], [address], [place] [facility], 8 10:05:17 Herpesvir us infection 88088633 Active 2017 Meme Luis MD [address], [place], [address], [place] [facility], 8 15:28:43 Osteopeni a 569242796 Active 2017 Meme Luis MD [address], [place], [address], [place] - [facility], 8 11:01:18 Lesion of vulva 496088208 Active 2019 Meme Luis MD [address], [place], [address], [place] [facility], 0 10:23:41 Dyspareun ia 53970802 Active 2020 Meme Luis MD [address], [place], [address], [place] [facility], 1 11:41:20 Osteoporo sis 84779649 Active 2022 Meme Luis MD [address], [place], [address], [place] - [facility], 3 11:32:39 Problem Notes None recorded. Procedures Surgical History Date Name Laterality Status Provider Name and Address Organization Details Recorded Time 11/02/19 25 Most Recent Mammogram completed Aparna Mckeonor [place] - [facility], 12/03/2024 14:47:36 11/01/19 23 Most Recent Bone Density completed Aparna Mecadrianeywor [place] - [facility], 11/08/2022 13:15:33 03/21/20 19 division of clavicle completed Aparna Mecjuliánwor [place] - [facility], 11/28/2019 09:30:15 10/09/19 07 Hysterectomy completed Meme Luis MD [address], [place], [address], [place] - [facility], 12/05/2017 09:31:10 10/10/18 84 Dilation and Curettage completed Aparna Mckoy [place] - [facility], 12/05/2017 09:18:54 Imaging Results None recorded. Procedure Notes None [...] Available Not Available Not Available amoxicillin 500 mg-potassiu m clavulanate 125 mg tablet take 2 tablets [...] 2022 active Not Available Not Available Not [facility] active Not Available Not [...] Updated DateTime 5 149.86 cm 24 kg/m2 89266.4 9 g 73 /min 148 mm[Hg] 64 mm[Hg] Aparna Mckoy [place] - [facility], 5 14:43:21 Social History Question Answer Notes LastModified by Organization Details LastModified Time Tobacco Smoking Status Former Smoker Not Available [facility] 08/11/2020 03:19:37 What Is Your Level Of [...] Type Of Diet Are You Following? REGULAR [id number] Information not available 08/11/2020 Which Illicit Or Recreational Drugs Have You Used? No [id number] Information not available 08/11/2020 Do You Reside In Or Have You Traveled To An Area Where Ebola Virus Transmission Is Active? No [id number] Information not available 08/11/2020 Do You Or Have You Ever Used E-cigarettes Or Vape? Never Used Electronic Cigarettes [id number] Information not available 08/11/2020 Education 2 Year College Information not available 12/05/2017 What Is Your Occupation? Retired [id number] Information not available 08/11/2020 How Many Days [...] You Sexually Active? Yes Having Issues With At[place] Brandan Information not available 03/01/2021 At What Age Did You Start Smoking Tobacco? 16 Information not available 12/06/2021 Do You Or Have You Ever Used Smokeless Tobacco? Never Used Smokeless Tobacco [id number] Information not available 08/11/2020 How Much Tobacco Do You Smoke? No [id number] Information not available 08/11/2020 General Stress Level Medium Information not available 12/03/2024 Do You Feel Stressed (tense, Restless, Nervous, Or Anxious, Or Unable To Sleep At Night)? [id number] Information not available 12/03/2024 Do You Use Any Illicit Or Recreational Drugs? No Information not available 12/06/2021 How Many Years Have You Smoked Tobacco? 20 [id number] Information not available 08/11/2020 Have You Recently [...] Time What is your exercise level? Moderate [id number] Information not available 08/11/2020 Mental Status None [...] for MyRisk panel N Autoimmune Condition N Lung Disease N Depression N Defects or Inherited Disease N History of Ovarian Cancer N BRCA testing in past N Anxiety Disorder Y Arthritis Y Infertility N History of Cancer N Endometriosis N Thyroid Problems N Kidney or Bladder Problems N GI Problems N Anemia N [...] quadrivalent, preservative 7 completed [place] Zaidi in [facility], 12/05/2017 09:12:48 Influenza, split virus, quadrivalent, preservative 8 completed [place] Arzola in [facility], 11/23/2018 10:05:53 DTaP 9 completed [place]idi in [facility], 11/28/2019 09:28:21 SARS-COV-2 (COVID-19) vaccine, UNSPECIFIED 1 completed [place] in [facility], 03/01/2021 13:49:14 Influenza, adjuvanted, trivalent, PF 9 completed [place] Zaidi in [facility], 12/08/2022 10:38:02 zoster recombinant 1 completed [place] Zaidi in [facility], 12/08/2022 10:38:02 Influenza, high-dose, quadrivalent, PF 0 completed [place] Zaidi in [facility], 12/08/2022 10:38:02 Influenza, adjuvanted, quadrivalent, PF 1 completed Aparna Meczywor null, [place] - [facility], 12/08/2022 10:38:02 Influenza, adjuvanted, quadrivalent, PF 2 completed Aparna Meczywor null, [place] - [facility], 12/08/2022 10:38:02 COVID-19, mRNA, LNP-S, PF, 30 mcg/0.3 mL dose 2 completed Aparna Meczywor null, [place] - [facility], 12/08/2022 10:38:02 COVID-19, mRNA, LNP-S, PF, 30 mcg/0.3 mL dose 1 completed Aparna Meczywor null, [place] - [facility], 12/08/2022 10:38:02 COVID-19, mRNA, LNP-S, PF, 30 mcg/0.3 mL dose 1 completed Aparna Meczywor null, [place] - [facility], 12/08/2022 10:38:02 COVID-19, mRNA, LNP-S, PF, 30 mcg/0.3 mL dose, jeovany-sucrose 2 completed Aparna Meczywor null, [place] [facility], 12/08/2022 10:38:02 Tdap 9 completed Aparna Meczywor null, [place] [facility], 12/08/2022 10:38:02 Influenza, split virus, trivalent, preservative 3 completed Aparna Meczywor null, [place] [facility], 12/08/2022 10:38:02 Past Encounters Encounter ID Performer Location Encounter Start Date Encounter Closed Date Diagnosis/Indication Diagnosis SNOMED-CT Code Diagnosis ICD10 Code Diagnosis Note [id number] MD MEME Srivastava MD [address] [facility], [address] [place] [address] 12/03/2024 14:38:27 12/03/2024 16:06:50 Screening for malignant neoplasm of cervix 673679909 Z12.4 Screening mammography 24 903076 Z12.31 Screening for osteoporosis 013076261 N95.8 Osteoporosis 05072186 M8 1.0 Health Concerns Section Related Observation LastModified by Organization Detai ls LastModified Time None Recorded Concern Status LastModified by Organization Details LastModified Time None Recorded Payers Encounter Date Sequence Insurance Name Policy Number Policy Crawford Covered Member ID Crawford Member ID Guarantor Name 12/03/2024 1 [facility]: MEDICARE PPO BLUE (MEDICARE REPLACEMENT PPO) [id number] Whitney Verde [id number] Whitney [place]de Notes Date Note Type Note Provider Name and Address Organization Details Recorded Time 12/03/2024 text/html She is here for annual, she started Prolia in 11/2022. Has not had a bone density since then. She is using an over the counter oral pill she gets from [employer] that helps with vaginal dryness, she is not certain if it is a phytoestrogen or not. She has had a hysterectomy. Note from 2021: She is here for annual exam, has osteopenia, is on Evista, next bone density in 07/30. she needs a refill on her estradiol vaginal cream, it does help the vaginal dryness and urinary urge incontinence. Meme Luis MD [address] [place] [address],[address], [place], [address], [place] [facility], 12/03/2024 15:07:17 OBGyn Episode No OBEpisode recorded.
--- OUTSIDE RECORDS SUMMARY | 2024-12-13 12:30 | XMS_ITS | Clinical Summary ---
Author Organization [facility] it Address [address] [place] [address] Care Team Providers Care Chipping Machine Operator Name Role Phone Unavailable Primary Care Provider [...]
--- OUTSIDE RECORDS SUMMARY | 2024-12-13 12:30 | XMS_ITS | Data Portability ---
Author Organization [place] - [facility], [facility] Address [address] [place] [address] Care Team Providers Care Bridal Stylist Sales Consultant Name Role Phone BRANDON MADRIGAL Primary Care Provider Assessment Encounter Date Assessment Date Assessment LastModified by Organization Details LastModified Time 08/21/2024 08/21/2024 Assessment: Patient presents with signs and symptoms consistent with shoulder pain, including ROM/strength deficits and functional limitations. Plan: Continue PT @ 2x/wk for 6 weeks to decrease pain, increase ROM/strength, optimize shoulder mechanics for functional movements such as reaching and self-care. [email or web address] Not available 08/20/2024 12:17:18 08/23/2024 08/23/2024 Assessment: Reviewed HEP with pt and corrected technique as indicated. Plan: Continue PT to decrease pain, increase ROM/strength, optimize shoulder mechanics for functional movements such as reaching and self-care. [email or web address] Not available 08/26/2024 11:12:33 08/27/2024 08/27/2024 Assessment: Performed all ther ex without pain or discomfort in L shoulder. Plan: Continue PT to decrease pain, increase ROM/strength, optimize shoulder mechanics for functional movements such as reaching and self-care. [email or web address] Not available 08/29/2024 08:42:03 08/30/2024 08/30/2024 Assessment: Pt has met all PT STG. Pt d/c to (I) HEP with good understanding of continuation of exercises for further functional gains. Plan: D/c to (I) HEP. [email or web address] Not available 09/09/2024 09:26:31 Plan of Treatment Reminders Order Date Submit Date Provider Last Modified By Organization Details Last Modified Time Details Appointments NEW PATIENT 10 2024 01:20P Allan Pollock MD Not available Not available Not available Lab None recorded . Referral None recorded . Procedures None recorded . Surgeries None recorded . Imaging None recorded . Medication Orders None recorded . Patient TargetsNo targets recorded. Patient Instructions Encounter Date Encounter Id Patient Instructions Last Modified By Organization Details Last Modified Time 08/21/[id number] Short Term Goals (3 weeks): 1) Initiate a HEP 2) Pain < 2/10 3) Increase shoulder PROM to 150 with flexion, 110 with abd, 85 with ER, and 85 with IR 4) Increase strength by 1/3 MMT grade where weak 5) ACROM SB right = 25, Rot right = 65 Group Home Goals(6 weeks): 1) Pain < 1/10 2) The patient will have full PROM at the left shoulder with flexion, ER, and IR 3) Independent with ADLs and home responsibilities 4) The patient will be able to reach overhead with < 1/10 pain 5) Increase strength at left shoulder to 5/5 with MMT 6) The patient will have full ACROM with B/L SB and rotation 7) Transition to HEP 8) The patient will be able to lift light weight overhead with < 1/10 pain [email or web address] Not available 08/21/2024 12:15:33 Reason for Referral None Reported. Results Created Date Observation Date Name Description Value Unit Range Abnormal Flag Note LastModifiedBy Organization Detail LastModifiedTime 08/16/20 24 08/16/2024 XR, shoul katie, 2 or more view http:/ [email or web address] ?Encry pted=s hAaTro YD8dLq bEUv6g %2BXZw aYqtaq 0bqfl% 2Fg9IQ a4ajBk vP9nXo QUaueC m3YtLR FvZlgJ JJ8mAn HZtai3 0w8063 AC0Kqa HqAV6u iKiQtr Mw INTERFACE [facility] [address] [facility] [address], [place], [address], 08/16/2024 10:57:16 08/16/20 24 08/16/2024 XR, shoul katie, 2 or more view [email or web address] ?Encry pted=s hAaTro YD8dLq bEUv6g %2BXZw aYqtaq 0bqfl% 2Fg9IQ a4ajBk vP9nXo QUaueC m3YtLR FvZlgJ JJ8mAn HZtai3 0w6894 AC0Kqa HqAV6u iKiQtr MwF INTERFACE [facility] [address], [place], [address], 08/16/2024 10:57:18 10/22/19 25 10/19/2024 MRI, shoul katie, w/o contr ast [facility] Access ion Number : [id number] Patililian marcus Name: Alfredo Collazo i Medica l Record Number : [id number] Date of : 1954 Date of Exam: 2024 Referr ing Physic michelle: Natalie Barker [address] [facility], [place] [address] Exam: MR Should er (C-) CPT 41549 - Left Room Descri ption: [facility] Pion 3T Clinic al Histor y: Pain in the left should er, questi on rotato r cuff tear. The patien t report s cover operator ior daily positi onal left should er [...] hickne ss in the centra l and cover operator ior inferi or aspect . There is subcho ndral cyst in the cover operator ior inferi or glenoi d. Inferi or [...] . Electr onical ly Signed By: Tonya [email or web address] [facility] ([facility]) [address] [place], [address], 10/23/2024 08:40:11 Result Notes None recorded. Problems Name Problem SNOMED Code Status Onset Date Resolution Date Notes Provider Name and Address Organization Details Recorded Time Pain of left shoulder joint 887331371962 18409 Active 2023 MECHE Clemens [address], [place], [address] , [place] - [facility] 4 08:46:35 Osteoarth ritis of joint of left shoulder region 274691336415 108 Active 2024 MECHE Gray [address], [place], [address] , [facility] 5 08:46:19 Subacromi al bursitis of left shoulder 257579955879 9106 Active 2024 Natalie Tovar PA-C [address], [place], [address] , [facility] 5 11:26:20 Trochante elza bursitis of right hip 725678287104 100 Active 2017 Problem Code: M70.61; Problem Code Type: ICD-10; Status: 'A'; Not Available [facility] 4 12:13:25 Problem Notes None recorded. Procedures Surgical History Date Name Laterality Status Provider Name and Address Organization Details Recorded Time 4 75568 Therapeutic Exercise (1:1) cancelled Vish Gonzales, PT [address], [place], [address], [facility] 09/13/2024 11:49:28 4 23773: Hot or Cold Pack cancelled Vish Gonzales, PT [address], [place], [address], [facility] 09/13/2024 11:49:28 4 44109: Manual therapy cancelled Vish Gonzales, PT [address], [place], [address], [facility] 09/13/2024 11:49:28 4 64635 Therapeutic Exercise (1:1) completed Linda Moody, APPLICATION SECURITY ARCHITECT [address], [place], [address], [facility] 09/09/2024 09:24:11 4 74282: Hot or Cold Pack completed Linda Moody, APPLICATION SECURITY ARCHITECT [address], [place], [address], [facility] 09/09/2024 09:24:11 4 56847: Manual therapy completed Linda Jasak, APPLICATION SECURITY ARCHITECT [address], [place], [address], [facility] 09/09/2024 09:24:11 4 39403 Therapeutic Exercise (1:1) completed Linda Jasak, APPLICATION SECURITY ARCHITECT [address], [place], [address], [facility] 08/29/2024 08:37:46 4 10845: Hot or Cold Pack completed Linda Jasak, APPLICATION SECURITY ARCHITECT [address], [place], [address], [facility] 08/29/2024 08:37:46 4 95669: Manual therapy completed Linda Jasak, APPLICATION SECURITY ARCHITECT [address], [place], [address], [facility] 08/29/2024 08:37:46 4 76613 Therapeutic Exercise (1:1) completed Linda Jasak, APPLICATION SECURITY ARCHITECT [address], [place], [address], [facility] 08/26/2024 11:19:51 4 23207: Hot or Cold Pack completed Linda Jasak, APPLICATION SECURITY ARCHITECT [address], [place], [address], [facility] 08/26/2024 11:19:46 4 82162: Manual therapy completed Linda Jasak, APPLICATION SECURITY ARCHITECT [address], [place], [address], [facility] 08/26/2024 11:24:54 4 77599 Therapeutic Exercise (1:1) completed Vish Gonzales, PT [address], [place], [address], [facility] 08/20/2024 12:16:29 4 76316: Low complexity PT Eval completed Vish Gadsden, PT [address], [place], [address], [facility] 08/20/2024 12:16:35 4 Sports Shoulder completed Natalie Bhatt PA-C [address], [place], [address], [facility] 08/16/2024 12:19:27 Imaging Results Imaging Date Name Status LastModified by Organiz ation Details LastModified Time 08/16/2024 XR, shoulder, 2 or more view completed INTERFACE [facility] [address], [place], [address], 08/16/2024 10:57:16 08/16/2024 XR, shoulder, 2 or more view completed INTER[facility] [address], [place], [address], 08/16/2024 10:57:18 10/19/2024 MRI, shoulder, w/o contrast completed [email or web address] [facility] ([facility]) [address], [place], [address], 10/23/2024 08:40:11 Procedure Notes None recorded. Medical Equipment None [...] Updated DateTime 11/15/2024 152.4 cm 23.4 kg/m2 28629.08 g MIGUEL WEBBER [place] - [facility] 11/15/2024 09:32:18 Social History Question Answer Notes LastModified by Organizat ion Details LastModified Time Tobacco Smoking Status Former Smoker DINESH jefferson [place] - [facility] 08/16/2024 10:40:07 What Is Your [...] Use Any Illicit Or Recreational Drugs? Yes Information not available 08/16/2024 Do You Or Have You Ever Used Any Other Forms Of Tobacco Or Nicotine? No Information not available 08/16/2024 Sex: Unknown Functional [...] SNOMED-CT Code Diagnosis ICD10 Code Diagnosis Note [id number] MECHE Clemens [address] [place] [address] 08/16/2024 10:11:15 09/04/2024 09:22:03 Pain of left shoulder joint [id number] 0226203 M25.312 [id number] Vish Goznales, PT [facility] [address] [place] [address] 08/21/2024 11:21:58 08/21/2024 11:31:04 Pain of left shoulder region 2913721406 M25.892 [id number] Vish Gonzales, PT [facility] [address] [place] [address] 08/23/2024 14:23:48 08/23/2024 15:00:54 Pain of left shoulder region 6463554401 M25.233 [id number] Vish Gonzales, PT [facility] [address] [place] [address] 08/27/2024 14:54:41 08/27/2024 15:28:02 Pain of left shoulder region 6696811024 M25.999 [id number] Vish Gonzales PT [facility] [address] [place] [address] 08/30/2024 13:58:00 08/30/2024 14:42:58 Pain of left shoulder region 8075599331 M25.621 [id number] MECHE Gray [address] [place] [address] 11/15/2024 08:59:50 12/04/2024 15:38:51 Osteoarthritis of joint of left shoulder region 1948705759 80442 M19.012 Subacromia l bursitis of left shoulder 1739535140 827580 M75.52 Health Concerns Section Related Observation LastModified by Organization Detai ls LastModified Time None Recorded Concern Status LastModified by Organization Details LastModified Time None Recorded Advance Directives Directive None Recorded Payers Encounter Date Sequence Insurance Name Policy Number Policy Crawford Covered Member ID Crawford Member ID Guarantor Name 08/21/2024 1 [place] PPO) [id number] Whitney Borsari [id number] Whitney Borsari 08/23/2024 1 [place]PO) [id number] Whitney Borsari [id number] Whitney Borsari 08/27/2024 1 [place]PO) [id number] Whitney Borsari [id number] Whitney Borsari 08/30/2024 1 [place] PPO) [id number] Whitney Borsari [id number] Whitney Borsari 11/15/2024 1 [place] PPO) [id number] Whitney Borsari [id number] Whitney Borsari Notes Date Note Type Note Provider Name and Address Organization Details Recorded Time 4 text/html ShoulderReported bypatient.Severity:pain level 2/10; worst pain 3/10 The patient is a 69 y.o. female who states that she began experiencing left posterior delt/bicep pain about 2 months ago. She states that there was no specific injury, and that the pain may have been due to how she slept. She states that she had a cortisone injection on 08/16/24, that helped her symptoms moderately. MRI from 3 years ago showed a partial thickness RC tear and moderate tendinosis. The patient has difficulty with reaching overhead, lifting light weight overhead, sleeping a full night, prolonged carrying, and self ADLs. Vish Gonzales, PT [address], [place], [address], [facility] 08/22/2024 06:18:32 4 text/html Pt states that she is staying compliant with exercises at home. Linda Moody, APPLICATION SECURITY ARCHITECT [address], [place], [address], [facility] 08/26/2024 11:28:55 4 text/html Pt states that she feels PT is working for her and her shoulder is feeling good. She rates her pain on average 1/10. Linda Quezadaliana, APPLICATION SECURITY ARCHITECT [address], [place], [address], [facility] 08/29/2024 08:42:26 4 text/html Pt states that her shoulder has been feeling great since getting the cortisone shot and coming to PT. She states she would like to continue her exercises at home and be discharged from PT. Linda Moody, APPLICATION SECURITY ARCHITECT [address], [place], [address], [facility] 09/09/2024 09:26:51 5 text/html I am seeing the patient today under the supervision of {{Jeff Buchanan [place]#}} who was available but did not see the patient. CLINICAL UPDATE: 69-year-old yulre-znyl-uskwcgsy female patient presents today for left shoulder [...] Bilateral}} shoulder reviewed along with 2v in [facility] today demonstrates type II acromion, mild to [...] and agrees with the plan. Speech recognition labor representative software was used to create portions of this document. An attempt at proofreading has been made to minimize errors. Please call for corrections. Natalie Tovar PA-C [address] [facility] [address], [place], [address], [facility] - [facility] 11/15/2024 11:27:09 OBGyn Episode No OBEpisode recorded.
== END 2024-12-13 11:40 | disposition home or self-care (01) ==
PROVIDERS: PCP Internal Medicine; Visit Provider Physician Assistant Medical
DX: G25.0 Essential tremor (principal); G93.89 Other specified disorders of brain
CPT/HCPCS: 99214

== ENCOUNTER → 2024-12-13 10:54 | Outpatient (BNVA) | payer MEDICARE, SELFPAY | PROVIDERS: PCP Internal Medicine; Visit Provider Physician Assistant Medical | DX: G25.0 Essential tremor (principal); G93.89 Other specified disorders of brain | CPT/HCPCS: 99212 ==

== ENCOUNTER 2025-06-16 10:38 | Outpatient (AMB) | payer MEDICARE, SELFPAY ==
[2025-06-16 10:56] VITALS: BP 138/76; PULSE 72; O2SAT 95; BMI 23.5
--- NOTE | 2025-06-16 10:56 | A.OFFVIS_ITS ---
Vital Signs 06/16/25 10:56 Height 5 ft Weight 120 lb 6 oz BMI 23.5 BP 138/76 Blood Pressure Location Rt brachial Position Sitting Pulse 72 Pulse Source Pulse Oximeter Pulse Oximetry (%) 95 Oxygen Delivery Method Room Air Intake Visit Reasons: 6m follow up Intake Note: Patient presents follow up Tremor. Patient states under control with medication. Accompanied by: Self / Same As Patient Allergies No Known Allergies Allergy (Verified 06/16/25 11:00) HPI Comments Details: 70y/o r. handed female comes for an evaluation of tremors. She noticed tremors in her hands for about 10 years. Her tremors have improved with propanolol 10mg po TID. The tremors are with action and when she does activities that require fine motor coordination. She goes to sleep at 9pm and wakes up at 7am, with 2-3 awakenings for a bathroom break. Her diet is well balanced and she exercises 4x a week, walking 30min to 40min. Mood is generally happy. No rest tremors. No voice tremors. Handwriting is moderately affected. Using utensils- moderate difficulty drinking soup Drinking liquids out of a cup- holds with 2 hands Dressing independent in all ADLs No LE Tremors Social activities are not impacted or limited. Denies memory issues. Denies headaches. Denies falls. Denies constipation. White coat htn, bp has improved. [facility] Medical History Benign essential tremor Esophageal stenosis Osteoporosis Anxiety Surgical History H/O shoulder surgery H/O: hysterectomy Hx of colonoscopy Family History Mother COPD (chronic obstructive pulmonary disease) Father Malignant neoplasm Social History Alcohol intake: current Patient Tobacco Use Status: Never used Tobacco Review of Systems ENT Reports Normal hearing present Neuro Reports Normal hearing present Physical Exam Vital Signs: Last Vital Signs Pulse 72 06/16/25 10:56 BP 138/76 06/16/25 10:56 Pulse Ox 95 06/16/25 10:56 Oxygen Delivery Method Room Air 06/16/25 10:56 BMI result Body Mass Index 23.5 Const General: cooperative, comfortable and no acute distress Nutritional Appearance: average body habitus Orientation/consciousness: patient oriented x3 HEENT Face and sinus: Yes face symmetric Teeth and gingiva: other (mallampti score is 3) Eyes Pupils: Equal, round and reactive pupils present Neck Neck: Yes full ROM and Yes supple Resp Effort & Inspection: normal respiratory effort and able to speak in complete sentences Neuro Other: Head tremors - mild Tongue mild tremors Mild voice tremors Hands - mild postural L>R tremors and mild to moderate action tremors Handwriting sample, [employer] spiral General: patient oriented x3, gait normal, tone normal, moves all extremities and no focal motor deficits Cranial nerves: Yes Facial sensation intact/muscles of mastication intact, Yes Equal, round and reactive pupils present, Yes Bilaterally intact EOM present, Yes Nystagmus not present, Yes Normal facial strength present, Yes Midline tongue present, Yes Symmetric palate elevation present, Yes Normal hearing present and Yes Ability to bilaterally elevate shoulders present (chronic pain in l. shoulder recent surgery January 2025.) Cognition (Neuro): normal cognition Gait exam (Neuro): Normal gait present Motor exam (neuro): 5/5 motor strength present throughout and Normal motor muscle tone present throughout Coordination: sheqym-dl-aupe test normal Psych Appearance: grossly normal Mental Status: mental status grossly normal Speech and movement: Normal speech and movement present Thought process: Normal thought process present Thought content: Normal thought content present Results Reviewed Results Reviewed: Nov 2024 MR/MR head/brain wo con IMPRESSION: No acute intracranial abnormality. Assessment & Plan Assessment & Plan (1) Benign essential tremor: Code(s): G25.0 - Essential tremor Category: Medical (2) Occasional tremors: Code(s): R25.1 - Tremor, unspecified Category: Medical (3) Periventricular calcification: Code(s): G93.89 - Other specified disorders of brain Category: Medical Plan Essential tremor well managed on BB, continue on propranolol 10 mg tid Discussed White Coat HTN and managing and monitoring BP at home. Patient decline HST and evaluation of sleep. Labs requested from pcp to r/o deficiencies. Discussed various management options for benign essential tremors including caltrio, FUS, and DBS F/u in one year or sooner as needed. Patient Instructions: Sleep Hygiene provided: set a scheduled bedtime and wake time to help regulate the circadian rhythm and balance the release of pituitary hormones. Sleep in a dark room, temperatures below 68 degrees, and no devices n bed. Limit caffeinated products 6 hours prior to bed, and limit fluids 2-4 hours prior to bed. Gentle night yoga, diffusing essential oils, and playing soft music can be relaxing. Coding Level of Care Code Est Pt Level 4 (62608) Diagnoses Benign essential tremor G25.0 Occasional tremors R25.1 Periventricular calcification G93.89
--- OUTSIDE RECORDS SUMMARY | 2025-06-16 12:50 | XMS_ITS | Clinical Summary ---
Author Organization [facility] ity Address [address] [place] [address] Care Team Providers Care It Desktop Support Technician Name Role Phone Unavailable Primary Care Provider Unavailabl e Social History Tobacco Use Types Packs/Day Years [...] 2) 01/04/2004 Colorectal Cancer Screening: Colonoscopy 11/07/2023 Falls Risk Assessment 11/07/2023 Hepatitis C Screening 11/07/2023 Osteoporosis Screening (Bone Density Screening) 11/07/2023 Social Influencers of Health Screening 11/07/2023 COVID-19 Vaccine ( - 2023-2 5 season) 2024 Depression Screening 10/09/2024 Influenza Vaccine (#1) 2025 RSV Immunization Adult Patie nts (1 - 1-dose 75+ series) 2029 HIB [...] age to complete this topic Meningococcal B Vaccine Aged Out No l onger eligible based on patient's age to complete this topic RSV Immunization Patients Un katie 20 months Aged Out No longer eligible b ased on patient's age to complete this topic Varicella Vaccines Aged Out No longer eligible based on patient's age to complete this topic
== END 2025-06-16 11:41 | disposition home or self-care (01) ==
LOC: HO.HSMS 10:39
PROVIDERS: PCP Internal Medicine; Visit Provider Physician Assistant Medical
DX: G25.0 Essential tremor (principal); R25.1 Tremor, unspecified; G93.89 Other specified disorders of brain
CPT/HCPCS: 99214

== ENCOUNTER → 2025-06-16 10:38 | Outpatient (BNVA) | payer MEDICARE, SELFPAY | PROVIDERS: PCP Internal Medicine; Visit Provider Physician Assistant Medical | DX: G25.0 Essential tremor (principal); I10 Essential (primary) hypertension; G93.89 Other specified disorders of brain | CPT/HCPCS: 99212 ==